=== PATIENT | female | born 1945 | race Native Hawaiian/Other Pacific Islander ===

== ENCOUNTER 2017-04-14 08:08 | Outpatient (CLI) | payer OTHER, MEDICARE | END 2017-04-14 19:08 | disposition home or self-care (01) | LOC: MAMMO 08:08 | DX: Z12.31 Encounter for screening mammogram for malignant neoplasm of breast (principal) | CPT/HCPCS: G0202-TC ==

== ENCOUNTER 2018-04-24 08:03 | Outpatient (CLI) | payer OTHER, MEDICARE | END 2018-04-24 19:23 | disposition home or self-care (01) | LOC: MAMMO 08:03 | DX: Z12.31 Encounter for screening mammogram for malignant neoplasm of breast (principal) ==

== ENCOUNTER 2019-02-14 07:15 | Outpatient (CLI) | payer OTHER, MEDICARE ==
[2019-02-14 08:09] LABS: PLATELET COUNT 176 K/uL (152-353)
[2019-02-14 08:23] LABS: POTASSIUM 3.8 mmol/L (3.6-5.2)
== END 2019-02-14 19:08 | disposition home or self-care (01) ==
LOC: LABW 07:15
PROVIDERS: Nurse Practitioner
DX: I10 Essential (primary) hypertension (principal); N20.0 Calculus of kidney; E11.9 Type 2 diabetes mellitus without complications; E78.00 Pure hypercholesterolemia, unspecified; E53.8 Deficiency of other specified B group vitamins; E55.9 Vitamin D deficiency, unspecified; E03.8 Other specified hypothyroidism
CPT/HCPCS: 36415; 80053; 80061; 82043; 82306; 82570; 82607; 83036; 84443; 84550; 85027

== ENCOUNTER 2019-05-08 07:03 | Outpatient (CLI) | payer OTHER, MEDICARE | END 2019-05-08 23:42 | disposition home or self-care (01) | LOC: MAMMO 07:03 | DX: Z12.31 Encounter for screening mammogram for malignant neoplasm of breast (principal) ==

== ENCOUNTER 2019-11-08 11:10 | Outpatient (CLI) | payer OTHER, MEDICARE ==
[2019-11-08 11:45] LABS: PLATELET COUNT 174 K/uL (152-353)
[2019-11-08 12:16] LABS: POTASSIUM 4.3 mmol/L (3.6-5.2)
== END 2019-11-08 21:19 | disposition home or self-care (01) ==
LOC: LAB 11:10
PROVIDERS: Internal Medicine
DX: Z00.00 Encounter for general adult medical examination without abnormal findings (principal); E11.9 Type 2 diabetes mellitus without complications; I10 Essential (primary) hypertension; E03.8 Other specified hypothyroidism; E78.00 Pure hypercholesterolemia, unspecified; E53.8 Deficiency of other specified B group vitamins; E55.9 Vitamin D deficiency, unspecified; R53.81 Other malaise; R53.83 Other fatigue; Z79.899 Other long term (current) drug therapy
CPT/HCPCS: 80053; 80061; 82306; 82607; 83036; 84439; 84443; 85027

== ENCOUNTER 2019-11-12 10:53 | Outpatient (CLI) | payer OTHER, MEDICARE | END 2019-11-12 20:06 | disposition home or self-care (01) | LOC: LAB 10:53 | DX: M10.9 Gout, unspecified (principal) | CPT/HCPCS: 84550 ==

== ENCOUNTER 2020-06-18 08:20 | Outpatient (CLI) | payer OTHER, MEDICARE | END 2020-06-18 23:33 | disposition home or self-care (01) | LOC: MAMMO 08:20 | DX: Z12.31 Encounter for screening mammogram for malignant neoplasm of breast (principal) ==

== ENCOUNTER 2020-06-30 13:11 | Outpatient (CLI) | payer OTHER, MEDICARE ==
[2020-06-30 14:05] LABS: PLATELET COUNT 162 K/uL (152-353)
[2020-06-30 14:23] LABS: POTASSIUM 4.3 mmol/L (3.6-5.2)
== END 2020-06-30 19:37 | disposition home or self-care (01) ==
LOC: LAB 13:11
PROVIDERS: Nurse Practitioner Family
DX: E03.8 Other specified hypothyroidism (principal); E78.00 Pure hypercholesterolemia, unspecified; E11.9 Type 2 diabetes mellitus without complications; E53.8 Deficiency of other specified B group vitamins; E55.9 Vitamin D deficiency, unspecified; I10 Essential (primary) hypertension; R53.83 Other fatigue
CPT/HCPCS: 80053; 80061; 83036; 84439; 84443; 84481; 85027

== ENCOUNTER 2021-06-22 08:15 | Outpatient (CLI) | payer OTHER, MEDICARE | END 2021-06-22 20:06 | disposition home or self-care (01) | LOC: MAMMO 08:15 | PROVIDERS: ATTEND Nurse Practitioner Family | DX: Z12.31 Encounter for screening mammogram for malignant neoplasm of breast (principal) ==

== ENCOUNTER 2021-10-19 07:54 | Outpatient (CLI) | payer OTHER, MEDICARE ==
[2021-10-19 11:18] LABS: PLATELET COUNT 154 K/uL (152-353)
== END 2021-10-19 18:52 | disposition home or self-care (01) ==
LOC: LABW 07:54
PROVIDERS: ATTEND Internal Medicine
DX: E11.22 Type 2 diabetes mellitus with diabetic chronic kidney disease (principal); N18.32 Chronic kidney disease, stage 3b
CPT/HCPCS: 36415; 80053; 81000; 82043; 82330; 82570; 83036; 83735; 83970; 84100; 84155; 84439; 84443; 85027

== ENCOUNTER 2022-01-27 17:04 | Outpatient (CLI) | payer OTHER, MEDICARE ==
[2022-01-27 17:40] LABS: PLATELET COUNT 167 K/uL (152-353)
[2022-01-27 18:02] LABS: POTASSIUM 4.2 mmol/L (3.6-5.2)
== END 2022-01-27 22:11 | disposition home or self-care (01) ==
LOC: LAB 17:04
PROVIDERS: ATTEND Nurse Practitioner Family
DX: E03.8 Other specified hypothyroidism (principal); E11.9 Type 2 diabetes mellitus without complications; E55.9 Vitamin D deficiency, unspecified; E53.8 Deficiency of other specified B group vitamins; R53.83 Other fatigue; I10 Essential (primary) hypertension; M10.9 Gout, unspecified; R53.81 Other malaise; Z79.899 Other long term (current) drug therapy; E78.49 Other hyperlipidemia; N28.89 Other specified disorders of kidney and ureter
CPT/HCPCS: 80053; 80061; 82306; 82607; 83036; 84439; 84443; 85027

== ENCOUNTER 2022-05-03 13:17 | Outpatient (CLI) | payer OTHER, MEDICARE ==
[2022-05-03 13:53] LABS: PLATELET COUNT 161 K/uL (152-353)
[2022-05-03 14:22] LABS: POTASSIUM 4.4 mmol/L (3.6-5.2)
== END 2022-05-03 19:07 | disposition home or self-care (01) ==
LOC: LAB 13:17
PROVIDERS: ATTEND Nurse Practitioner Family
DX: E03.8 Other specified hypothyroidism (principal); E11.9 Type 2 diabetes mellitus without complications; I10 Essential (primary) hypertension; E55.9 Vitamin D deficiency, unspecified; E53.8 Deficiency of other specified B group vitamins; R53.83 Other fatigue; M10.9 Gout, unspecified; N28.89 Other specified disorders of kidney and ureter; R53.81 Other malaise; Z79.899 Other long term (current) drug therapy
CPT/HCPCS: 80053; 80061; 82306; 82607; 83036; 84439; 84443; 85027

== ENCOUNTER 2022-07-19 07:55 | Outpatient (CLI) | payer OTHER, MEDICARE | END 2022-07-19 20:28 | disposition home or self-care (01) | LOC: MAMMO 07:55 | PROVIDERS: ATTEND Nurse Practitioner Family | DX: Z12.31 Encounter for screening mammogram for malignant neoplasm of breast (principal) ==

== ENCOUNTER 2022-08-01 14:53 | Outpatient (CLI) | payer OTHER, MEDICARE ==
[2022-08-01 15:02] LABS: PLATELET COUNT 162 K/uL (152-353)
[2022-08-01 15:30] LABS: POTASSIUM 4.1 mmol/L (3.6-5.2)
== END 2022-08-01 19:37 | disposition home or self-care (01) ==
LOC: LAB 14:53
PROVIDERS: ATTEND Nurse Practitioner Family
DX: E11.9 Type 2 diabetes mellitus without complications (principal); I10 Essential (primary) hypertension; E03.8 Other specified hypothyroidism; E55.9 Vitamin D deficiency, unspecified; E53.8 Deficiency of other specified B group vitamins; E78.49 Other hyperlipidemia; M10.9 Gout, unspecified
CPT/HCPCS: 80053; 80061; 82306; 82607; 83036; 84439; 84443; 84550; 85027